=== PATIENT | female | born 1990 | race African-American/Black ===

== ENCOUNTER 2017-11-10 12:12 | Emergency (ER) | payer SELFPAY ==
[~2017-11-10] VITALS: Ht 160 cm; Wt 69.0 kg
[2017-11-10 12:28] VITALS: BP 110/73
[2017-11-10] MEDS ORDERED: IBUPROFEN 600MG TABLET PO ONE (13:30)
== END 2017-11-10 14:13 | disposition home or self-care (01) ==
LOC: ER 12:29
DX: M54.2 Cervicalgia (principal); M54.6 Pain in thoracic spine; M25.512 Pain in left shoulder; V49.88XA Car occupant (driver) (passenger) injured in other specified transport accidents, initial encounter; Y93.89 Activity, other specified; Y92.89 Other specified places as the place of occurrence of the external cause; Y99.8 Other external cause status
CPT/HCPCS: 81025; 99283